=== PATIENT | female | born 1990 | race African-American/Black ===

== ENCOUNTER 2018-07-21 06:42 | Emergency (ER) | payer SELFPAY ==
[~2018-07-21] VITALS: Ht 165.1 cm; Wt 61.2 kg
[2018-07-21 06:59] VITALS: BP 112/65
== END 2018-07-21 08:40 | disposition left against medical advice (07) ==
LOC: ER 06:54
DX: M79.602 Pain in left arm (principal); Z53.21 Procedure and treatment not carried out due to patient leaving prior to being seen by health care provider